=== PATIENT | male | born 1950 ===

== ENCOUNTER 2017-04-28 12:22 | Emergency (ER) | payer BC, OTHER ==
[~2017-04-28] VITALS: Ht 172.7 cm; Wt 83.9 kg
--- NOTE | 2017-04-28 13:33 | ED Upper Extremity ---
General Stated Complaint: RT ARM 'PULLED' Source: patient Exam Limitations: no limitations History of Present Illness Date Seen by Provider: Apr 28, 2017 Time Seen by Provider: 13:30 Initial Comments To ER with complaints of right arm pain. He states that on Tuesday with copious move when he felt the pulling sensation described as "3 rubber bands" across the medial aspect of the upper arm. He was using his arm to pull himself up today for worsening of this pain. He has a history of right shoulder dislocation. Pain is worsened by movement. He denies any swelling. Onset: last week Severity: moderate Pain/Injury Location: right arm Method of Injury: other (Lifting) Modifying Factors: Worse With Movement Allergies and Home Medications Allergies Coded Allergies: No Known Drug Allergies (Unverified , 04/28/17) Patient Home Medication List Home Medication List Reviewed: Yes Constitutional: see HPI EENTM: see HPI Respiratory: no symptoms reported Cardiovascular: no symptoms reported Genitourinary: no symptoms reported Musculoskeletal: see HPI Skin: no symptoms reported Psychiatric/Neurological: No Symptoms Reported Past Uychffs-Vmsbrt-Dvivar Hx Patient Social History Recent Foreign Travel: No Contact w/Someone Who Travel: No Physical Exam Vital Signs Vital Signs - First Documented 04/28/17 13:20 Temp 98.4 Pulse 78 Resp 16 B/P (MAP) 135/74 (94) Pulse Ox 100 O2 Delivery Room Air Capillary Refill : General Appearance: WD/WN, no apparent distress HEENT: PERRL/EOMI, normal ENT inspection Neck: non-tender, full range of motion Cardiovascular: regular rate, rhythm, no murmur Respiratory: normal breath sounds, no respiratory distress, no accessory muscle use Gastrointestinal: normal bowel sounds, non tender, soft Shoulder: limited ROM (Limited range of motion due to pain at the medial aspect of the upper arm. There is no swelling, no palpable cord to suggest superficial thrombophlebitis, no erythema, no swelling of the arm to suggest DVT ,) Elbow/Forearm: normal inspection, non-tender, Right, limited ROM (there is no increased pain with supination or pronation of the forearm, no increased pain with flexion of the forearm at the elbow.) Wrist: Yes normal inspection, Yes non-tender Hand: normal inspection, non-tender, Right Neurologic/Psychiatric: alert, normal mood/affect, oriented x 3 Progress/Results/Core Measures Results/Orders My Orders Orders - HANKINS,PETER J STRUCTURAL MANAGER Shoulder, Right, 3 Views (04/28/17 13:29) Vital Signs/I&O Vital Sign - Last 12Hours 04/28/17 04/28/17 13:20 14:10 Temp 98.4 98.4 Pulse 78 78 Resp 16 16 B/P (MAP) 135/74 (94) 135/74 (94) Pulse Ox 100 100 O2 Delivery Room Air Departure Communication (Admissions) Progress Notes His pain is in the his pain is most in the location of the coracobrachialis muscle this may represent a strain of that muscle. Clinical exam and x-ray or otherwise benign. Impression Impression: Primary Impression: Muscle strain, upper arm Disposition: HOME, SELF-CARE Condition: Stable Departure-Patient Inst. Decision time for Depature: 13:37 Referrals: NO,LOCAL PHYSICIAN (PCP/Family) Primary Care Physician Patient Instructions: Muscle Strain (DC) Add. Discharge Instructions: 1. Tylenol and Motrin for pain. If the pain persists into next week follow up with your doctor to discuss further imaging such as MRI. Images Extremities-Upper 1 - JUANI HANKINS APRN Apr 28, 2017 13:33
--- NOTE | 2017-04-28 14:02 | Diagnostic Imaging Report ---
EXAMINATION: Right shoulder. INDICATION: Shoulder pain. FINDINGS: Three views were obtained. There are no prior studies available for comparison. There is no fracture, dislocation, or acute bony abnormality evident. The glenohumeral and acromioclavicular joints are fairly well maintained. There are surgical screws within the greater tuberosity. This does suggest a prior repair of the rotator cuff. The soft tissues are unremarkable. IMPRESSION: 1. There is no evidence for an acute bony abnormality. 2. If there is clinical concern that the repair of the rotator cuff has been injured, then MRI will be recommended for further evaluation. Dictated by: Dictated on workstation # [id number]
[2017-04-28 14:10] VITALS: BP 135/74
== END 2017-04-28 14:10 | disposition home or self-care (01) ==
LOC: ER 12:26
DX: S46.911A Strain of unspecified muscle, fascia and tendon at shoulder and upper arm level, right arm, initial encounter (principal); Z87.828 Personal history of other (healed) physical injury and trauma; X50.0XXA Overexertion from strenuous movement or load, initial encounter
CPT/HCPCS: 73030

== ENCOUNTER → 2017-05-04 | Outpatient (CLI) | payer BC ==
--- NOTE | 2017-05-04 09:29 | Diagnostic Imaging Report ---
EXAMINATION: Magnetic resonance imaging of the right shoulder without contrast. DATE: 05/04/2017. COMPARISON: Right shoulder radiographs 04/28/2017. HISTORY: 66-year-old male, right shoulder pain. TECHNIQUE: Magnetic Resonance Imaging sequences were performed of the shoulder without contrast. FINDINGS: ROTATOR CUFF, LIGAMENTS, TENDONS, AND MUSCLES: There are multiple anchors in the superior humeral head in the region of the supraspinatus and infraspinatus tendon attachments. There are full-thickness fullwidth tears of the supraspinatus and infraspinatus tendons with tendon retraction between the level of the superior humeral head and glenoid. The teres minor tendon is intact. The subscapularis tendon is intact. There is mild fatty atrophy of the supraspinatus muscle. There is moderate to severe fatty atrophy of the infraspinatus muscle. LONG HEAD OF BICEPS: The long head of biceps tendon is not well-seen within the bicipital groove and may be torn and retracted below this level. GLENOHUMERAL JOINT: The humeral head is mildly posteriorly subluxed. There is no definite discretely identified labral tear. There is no identified paralabral cyst. The articular cartilage is grossly intact. There is a small glenohumeral joint effusion with synovitis. ACROMIOCLAVICULAR JOINT: The acromioclavicular joint is normally aligned. The coracoclavicular and coracoacromial ligaments are intact. There are mild acromioclavicular degenerative changes without large undersurface osteophyte. BONE: The bones all have normal configuration. The bone marrow signal is within normal limits. Specifically, negative for fracture, osteomyelitis, osteonecrosis, or marrow replacing process. BURSAE AND SOFT TISSUES: There is fluid in the subacromial subdeltoid bursa compatible with the full-thickness rotator cuff tendon tears, bursitis, and/or recent injection. IMPRESSION: 1. Status post rotator cuff tendon repair with full-thickness fullwidth tears of the supraspinatus and infraspinatus tendons with tendon retraction between the level of the superior humeral head and glenoid. Mild fatty atrophy of the supraspinatus muscle and moderate to severe fatty atrophy of the infraspinatus muscle. 2. Mild acromioclavicular degenerative changes without large undersurface osteophyte. 3. Small glenohumeral joint effusion with synovitis. 4. No acute fracture or bone contusion. Dictated by: Dictated on workstation # [id number]
== END ==
LOC: RAD 07:30
PROVIDERS: ATTEND Nurse Practitioner Family
DX: M75.101 Unspecified rotator cuff tear or rupture of right shoulder, not specified as traumatic (principal); M65.861 Other synovitis and tenosynovitis, right lower leg
CPT/HCPCS: 73221

== ENCOUNTER 2017-12-06 05:36 | Outpatient (CLI) | payer BC ==
[~2017-12-06] VITALS: Ht 172.7 cm; Wt 83.9 kg
[2017-12-06] MEDS ORDERED: CARB1TAB19 PO (13:09)
[2017-12-06] MEDS ORDERED: LISI1TAB8 PO (13:09)
== END 2017-12-06 13:13 | disposition home or self-care (01) ==
LOC: PREOP 05:36
PROVIDERS: ATTEND Surgery
DX: Z01.818 Encounter for other preprocedural examination (principal)

== ENCOUNTER 2017-12-12 09:00 | Day surgery (SDC) | payer MEDICARE ==
[~2017-12-12] VITALS: Ht 172.7 cm; Wt 83.9 kg
[~2017-12-12 09:00] MED LIST: CARB1TAB19 PO; LISI1TAB8 PO
[2017-12-12 09:05] VITALS: BP 158/91
[2017-12-12] MEDS ORDERED: NS IV 500 ML 500 ML IV PRN (09:09)
[2017-12-12] MEDS ORDERED: MIDAZOLAM 2 MG/2 ML (VERSED) VIAL IVP ONE (09:15)
[2017-12-12] MEDS ORDERED: fentaNYL INJECTION 100 MCG/2 ML AMP IVP ONE (09:15)
--- NOTE | 2017-12-12 10:00 | History & Physicial ---
History of Present Illness History of Present Illness Reason for visit/HPI to undergo screening colonoscopy. Reports a family history of colon cancer in his father and a sister Date of Admission 12/12/17 Date Seen by a Provider: Dec 12, 2017 Time Seen by a Provider: 09:58 I consulted on this patient on 12/12/17 09:58 Attending Physician Eleazar Ivy MD Admitting Physician Michaela Tomlinson MD Consult Allergies and Home Medications Allergies Coded Allergies: No Known Drug Allergies (Unverified , 04/28/17) Home Medications Carbidopa/Levodopa 1 Each Tablet, 1 EACH PO DAILY, (Reported) Lisinopril/Hydrochlorothiazide 1 Each Tablet, 1 EACH PO DAILY, (Reported) Patient Home Medication List Home Medication List Reviewed: Yes Past Qbngvcr-Ceikhi-Phigxu Hx Patient Social History Marrital Status: Employed/Student: retired Alcohol Use: Rarely Uses Number of Drinks Today: AA Alcohol Beverage of Choice: Beer, Wine Recreational Drug Use: No Smoking Status: Never a Smoker 2nd Hand Smoke Exposure: No Recent Foreign Travel: No Contact w/other who traveled: No Recent Hopitalizations: No Recent Infectious Disease Expo: No Immunizations Up To Date Date of Influenza Vaccine: Nov 14, 2017 Seasonal Allergies Seasonal Allergies: No Surgeries Yes Orthopedic Respiratory Yes Currently Using CPAP: Yes Cardiovascular Yes Hypertension Neurological Yes (RLS) Genitourinary No Gastrointestinal No Musculoskeletal Arthritis Endocrine History of Endocrine Disorders: No Family Medical History Family Hx: Colon cancer Review of Systems Constitutional: no symptoms reported EENTM: no symptoms reported Respiratory: no symptoms reported Cardiovascular: no symptoms reported Gastrointestinal: no symptoms reported Genitourinary: no symptoms reported Musculoskeletal: other Skin: no symptoms reported Psychiatric/Neurological: Other Physical Exam Vital Signs Vital Signs - First Documented 12/12/17 09:05 Temp 98.4 Pulse 66 Resp 18 B/P (MAP) 158/91 (113) Pulse Ox 99 O2 Delivery Room Air Capillary Refill : Height, Weight, BMI Height: 5'8.00" Weight: 185lbs. 0.0oz. [id number]; 28.1 BMI Method:Stated General Appearance: No Apparent Distress Neck: Normal Inspection Respiratory: Lungs Clear Cardiovascular: Regular Rate, Rhythm Gastrointestinal: Soft Rectal: Deferred Extremity: Normal Inspection, No Calf Tenderness Neurologic/Psychiatric: Alert, Oriented x3 Skin: Warm/Dry Assessment/Plan Assessment and Plan gentleman with a family history of colon cancer. For screening colonoscopy. Admission Diagnosis Admission Status: Other (Outpt Proc) ELEAZAR IVY MD Dec 12, 2017 10:00
--- NOTE | 2017-12-12 10:00 | Conscious Sedation/ASA ---
Conscious Sedation Pre-Proced Time 10:00 ASA Score 2 For ASA 3 and 4: Consider anesthesia and medical clearance. Also, for patients with a history of failed moderate sedation consider anesthesia. Airway Lungs Heart ASA score ASA 1: a normal healthy patient ASA 2: a patient with a mild systemic disease (mid diabetes, controlled hypertension, obesity ASA 3: a patient with a severe systemic disease that limits activity (angina , COPD, prior Myocardial infarction) ASA 4: a patient with an incapacitating disease that is a constant threat to life (CHF, renal failure) ASA 5: a moribund patient not expected to survive 24 hrs. (ruptured aneurysm) ASA 6: a declared brain patient whose organs are being harvested. For emergent operations, add the letter E after the classification Mallampati Classification Grade 1 Sedation Plan Discussed options with patient/fam The patient is an appropriate candidate to undergo the planned procedure, sedation, and anesthesia. The patient immediately re-assessed prior to indication. ELEAZAR COLMENARES MD Dec 12, 2017 10:00
[2017-12-12] MEDS ORDERED: MIDAZOLAM 2 MG/2 ML (VERSED) VIAL ONE ×4 (10:22)
[2017-12-12] MEDS ORDERED: fentaNYL INJECTION 100 MCG/2 ML AMP ONE (10:22)
--- NOTE | 2017-12-12 11:22 | Endo Procedure Record ---
Endo Procedure Report Date of Procedure Last Colonoscopy: Yes Dec 12, 2017 Surgeon (s) ELEAZAR COLMENARES MD Post Procedure/Op Diagnosis 2 mm polyp at the proximal transverse colon Procedure Performed colonoscopy to cecum Snare polypectomy Description of Procedure Anesthesia Type: Conscious Sedation Specimen(s) collected/removed polyp from proximal transverse colon Description of the Procedure Indication for the procedure: This gentleman has indication family history of colon cancer, involving his father and sister. In addition, he has a personal history of adenomatous polyps as well. He came in for surveillance colonoscopy. Informed consent was obtained after reviewing the procedure in detail. Description of procedure: She was placed in left lateral decubitus position and his vital signs were monitored. Conscious sedation was achieved using Versed and fentanyl. Digital rectal examination was unremarkable. The colonoscope was then introduced into the rectum and advanced to the cecum. The scope was then withdrawn slowly and the mucosa examined in a systematic fashion. The quality of bowel preparation was rather sub-optimal. However, I was able to irrigate the mucosa and complete the examination. Findings: 1. Very few sigmoid diverticula 2. 2 mm pedunculated polyp at the proximal transverse colon, that was snared and retrieved. He tolerated the procedure well and was taken back to the nursing area in a stable condition. Impression: Personal history of polyps and family history of colon cancer. 2 mm polyp excised from the proximal transverse colon. Recommend surveillance colonoscopy in 3 years. Copy Copies To 1: NALLELY KELLY MD, XAVIER M MD Dec 12, 2017 11:22
--- NOTE | 2017-12-12 11:23 | Discharge Inst-Simple/Standard ---
Discharge Inst-Standard Discharge Medications New, Converted or Re-Newed RX: Other Patient Instructions/Follow Up Plan of Care/Instructions/FU: repeat colonoscopy in 3 years Activity as Tolerated: Yes Discharge Diet: No Restrictions ELEAZAR COLMENARES MD Dec 12, 2017 11:23
[2017-12-12 11:30] VITALS: BP 134/83
[2017-12-12 11:50] VITALS: BP 128/91
== END 2017-12-12 11:50 | disposition home or self-care (01) ==
LOC: ENDO 09:00
PROVIDERS: ATTEND Surgery
DX: Z12.11 Encounter for screening for malignant neoplasm of colon (principal); K63.5 Polyp of colon; K57.30 Diverticulosis of large intestine without perforation or abscess without bleeding; I10 Essential (primary) hypertension; G25.81 Restless legs syndrome; Z80.0 Family history of malignant neoplasm of digestive organs; Z79.899 Other long term (current) drug therapy; Z86.010 Personal history of colon polyps
CPT/HCPCS: 88305

== ENCOUNTER 2018-05-16 15:08 | Emergency (ER) | payer MEDICARE ==
[~2018-05-16] VITALS: Ht 172.7 cm; Wt 85.3 kg
--- OUTSIDE RECORDS SUMMARY | 2018-05-16 15:14 | XMS REPORT | CCD ---
Author Author Valentina Samayoa MD, [facility] Address [address] [place] [address] Phone Care Team Providers Care Director Of Rehabilitative Services Name Role Phone PP Unavailable CCM Unavailable Summary Purpose Interface Exchange Insurance Providers Payer name Policy type / Coverage type Covered republican ID Effective Begin Date Effective End Date WPS Medicare Part B Medicare Part B [id number] Unknown AARP Medicare Part B [id number] Unknown Family history Brother Diagnosis Age At Onset Hyperlipidemia Unknown Mother Diagnosis Age At Onset Arthritis Unknown Hyperlipidemia Unknown Hypertension Unknown Father Diagnosis Age At Onset Heart Attack Unknown Colon cancer Unknown Hyperlipidemia Unknown Arthritis Unknown Hypertension Unknown Sister Diagnosis Age At Onset Hypertension Unknown Cancer Unknown Hyperlipidemia Unknown Colon cancer Unknown Hyperlipidemia Unknown Social History Social History Element Codes Description Effective Dates Marital status Unknown Sushila 11/14/2017 Number of children Unknown 2 05/02/[address]: 164031 Currently drinks alcohol 05/02/2017 Frequency of drinks SNOMED CT: 309895832 1-4 drinks per week 05/02/2017 Allergies, Adverse Reactions, Alerts Substance Reaction Codes Entered Date Inactivated Date Status * NO KNOWN DRUG ALLERGIES Unknown 11/14/2017 No Inactive Date Active Past Medical History Illness Codes Condition Status Onset Date Resolved Date Essential (primary) hypertension ICD-9: 401.1 ICD-10: I10 Active 11/14/2017 Unknown Asymptomatic varicose veins of bilateral lower extremities ICD-9: 454.9 ICD-10: I83.93 Active 11/14/2017 Unknown Pain in left finger(s) ICD-9: 729.5 ICD-10: M79.645 Active 11/14/2017 Unknown Pain in right finger(s) ICD-9: 729.5 ICD-10: M79.644 Active 11/14/2017 Unknown Restless leg syndrome Unknown Active 05/02/2017 Unknown Pain in right shoulder ICD-9: 719.41 ICD-10: M25.511 Active 05/02/2017 Unknown Problems Condition Codes Effective Dates Condition Status Essential (primary) hypertension ICD-9: 401.1 ICD-10: I10 11/14/2017 Active Asymptomatic varicose veins of bilateral lower extremities ICD-9: 454.9 ICD-10: I83.93 11/14/2017 Active Pain in left finger(s) ICD-9: 729.5 ICD-10: M79.645 11/14/2017 Active Pain in right finger(s) ICD-9: 729.5 ICD-10: M79.644 11/14/2017 Active Restless leg syndrome Unknown 05/02/2017 Active Pain in right shoulder ICD-9: 719.41 ICD-10: M25.511 05/02/2017 Active Medications Medication Codes Instructions Start Date Stop Date Status Fill Instructions carbidopa 25 mg-levodopa 100 mg tablet RxNorm: 572536 1 Tablet(s) PO daily 11/22/2017 06/19/2018 Active lisinopril 20 mg-hydrochlorothiazide 12.5 mg tablet RxNorm: 551924 1 Tablet(s) PO daily 11/22/2017 06/19/2018 Active carbidopa 25 mg-levodopa 100 mg tablet RxNorm: 940424 1 Tablet(s) PO daily 11/21/2017 11/21/2017 Inactive lisinopril 20 mg-hydrochlorothiazide 12.5 mg tablet RxNorm: 441879 1 Tablet(s) PO daily 11/21/2017 11/21/2017 Inactive Voltaren 1 % topical gel RxNorm: 827247 1 Gram(s) TOP QID 11/1412/13/2017 Inactive acyclovir 200 mg capsule RxNorm: 184566 1 Capsule(s) PO as needed fever blisters No Start Date Active lisinopril 20 mg-hydrochlorothiazide 12.5 mg tablet RxNorm: 270771 1 Tablet(s) PO daily No Start Date 11/20/2017 Inactive carbidopa 25 mg-levodopa 100 mg tablet RxNorm: 622448 1 Tablet(s) PO daily No Start Date 11/20/2017 Inactive Medication Administered No Medication Administered data Immunizations Vaccine Codes Date Status SHINGARIX CVX: 121 04/24/2018 completed Assessments Condition Codes Effective Dates Essential (primary) hypertension ICD-10: I10 ICD-9: 401.1 05/15/2018 Pain in right finger(s) ICD-10: M79.644 ICD-9: 729.5 11/14/2017 Pain in left finger(s) ICD-10: M79.645 ICD-9: 729.5 11/14/2017 Asymptomatic varicose veins of bilateral lower extremities ICD-10: I83.93 ICD-9: 454.9 11/14/2017 Pain in right shoulder ICD-10: M25.511 ICD-9: 719.41 05/02/2017 Reason For Visit Reason For Visit Effective Dates Notes hypertension 05/15/2018 hypertension 11/14/2017 arm pain 05/02/2017 Results No Results data Review of Systems System Result Effective Dates Constitutional No recent illness 2018 Constitutional No chills 05/15/2018 Constitutional No fatigue 05/15/2018 Constitutional No fever 05/15/2018 Constitutional No insomnia 05/15/2018 Constitutional No malaise 05/15/2018 Eyes No vision change 05/15/2018 Ears/Nose/Throat/Neck No dizziness 2018 Ears/Nose/Throat/Neck No dysphagia 2018 Ears/Nose/Throat/Neck No headache 2018 Ears/Nose/Throat/Neck No nasal allergies 05/15/2018 Ears/Nose/Throat/Neck No sore throat 02/2018 Ears/Nose/Throat/Neck No sinus congestion 05/15/2018 Cardiovascular No chest pain/pressure 02/2018 Cardiovascular No dyspnea 05/15/2018 Cardiovascular No edema 05/15/2018 Cardiovascular No exercise intolerance Cardiovascular No fatigue 05/15/2018 Cardiovascular No near-syncope/dizziness 05/15/2018 Respiratory No chest tightness 2018 Respiratory No cough 05/15/2018 Respiratory No dyspnea 05/15/2018 Respiratory No pedal edema 05/15/2018 Gastrointestinal No abdominal pain 2018 Gastrointestinal No constipation 2018 Gastrointestinal No diarrhea 05/15/2018 Gastrointestinal No gastroesophageal reflux 05/15/2018 Genitourinary/Nephrology No nocturia 02/2018 Genitourinary/Nephrology No urinary incontinence 05/15/2018 Musculoskeletal stiffness 05/15/2018 Musculoskeletal No swelling 05/15/2018 Musculoskeletal bone pain 05/15/2018 Musculoskeletal No muscle weakness 2018 Dermatologic No rash 05/15/2018 Dermatologic No sores 05/15/2018 Neurologic No dizziness 05/15/2018 Neurologic No headache 05/15/2018 Neurologic No neck pain 05/15/2018 Neurologic No syncope 05/15/2018 Psychiatric No anxiety 05/15/2018 Psychiatric No depression 05/15/2018 Constitutional No recent illness 2017 Constitutional No chills 11/14/2017 Constitutional No fatigue 11/14/2017 Constitutional No fever 11/14/2017 Constitutional No insomnia 11/14/2017 Constitutional No malaise 11/14/2017 Eyes No vision change 11/14/2017 Ears/Nose/Throat/Neck No dizziness 2017 Ears/Nose/Throat/Neck No dysphagia 2017 Ears/Nose/Throat/Neck No headache 2017 Ears/Nose/Throat/Neck No nasal allergies 11/14/2017 Ears/Nose/Throat/Neck No sore throat 02/2017 Ears/Nose/Throat/Neck No sinus congestion 11/14/2017 Cardiovascular No chest pain/pressure 02/2017 Cardiovascular No dyspnea 11/14/2017 Cardiovascular No edema 11/14/2017 Cardiovascular No exercise intolerance Cardiovascular No fatigue 11/14/2017 Cardiovascular No near-syncope/dizziness 11/14/2017 Respiratory No chest tightness 2017 Respiratory No cough 11/14/2017 Respiratory No dyspnea 11/14/2017 Respiratory No pedal edema 11/14/2017 Gastrointestinal No abdominal pain 2017 Gastrointestinal No constipation 2017 Gastrointestinal No diarrhea 11/14/2017 Gastrointestinal No gastroesophageal reflux 11/14/2017 Genitourinary/Nephrology No nocturia 02/2017 Genitourinary/Nephrology No urinary incontinence 11/14/2017 Musculoskeletal stiffness 11/14/2017 Musculoskeletal No swelling 11/14/2017 Musculoskeletal No muscle weakness 2017 Dermatologic No rash 11/14/2017 Dermatologic No sores 11/14/2017 Neurologic No dizziness 11/14/2017 Neurologic No headache 11/14/2017 Neurologic No neck pain 11/14/2017 Neurologic No syncope 11/14/2017 Psychiatric No anxiety 11/14/2017 Psychiatric No depression 11/14/2017 Musculoskeletal bone pain 11/14/2017 Dermatologic ecchymosis 05/02/2017 Constitutional No recent illness 2017 Constitutional No anorexia 05/02/2017 Constitutional No night sweats 2017 Constitutional No chills 05/02/2017 Constitutional No diaphoresis 05/02/2017 Constitutional No fatigue 05/02/2017 Constitutional No fever 05/02/2017 Constitutional No insomnia 05/02/2017 Constitutional No malaise 05/02/2017 Constitutional No weight loss 05/02/2017 Constitutional No weight gain 05/02/2017 Eyes No eye discharge 05/02/2017 Eyes No eye erythema 05/02/2017 Ears/Nose/Throat/Neck No dizziness 2017 Ears/Nose/Throat/Neck No headache 2017 Cardiovascular No chest pain/pressure Cardiovascular No dyspnea 05/02/2017 Respiratory No cough 05/02/2017 Gastrointestinal No abdominal pain 2017 Gastrointestinal No constipation 2017 Gastrointestinal No diarrhea 05/02/2017 Genitourinary/Nephrology No dysuria 05/02 Musculoskeletal joint complaint 2017 Neurologic No alteration of consciousness 05/02/2017 Psychiatric No depression 05/02/2017 Endocrine No dry or coarse skin 2017 Hematologic/Lymphatic No abnormal ecchymoses 05/02/2017 Physical Exam Exam Name System Name Item Name Status Result Effective Dates Notes Full Exam - General 1994 Constitutional general appearance Development: well developed 05/15/2018 None Full Exam - General 1994 Constitutional general appearance Development: appears stated age 0405/15/2018 None Full Exam - General 1994 Constitutional general appearance Hygiene/Attention to Grooming: good hygiene 05/15/2018 None Full Exam - General 1994 Eyes conjunctiva /eyelids Overall: conjunctiva clear 05/15/2018 None Full Exam - General 1994 Eyes conjunctiva /eyelids Overall: cornea clear 05/15/2018 None Full Exam - General 1994 Eyes conjunctiva /eyelids Overall: eyelids normal 05/15/2018 None Full Exam - General 1994 Eyes pupils and irises Overall: pupils equal, round, reactive to light and accomodation 05/15/2018 None Full Exam - General 1994 Ears/Nose/Throat otoscopic exam Overall: external auditory canals clear 05/15/2018 None Full Exam - General 1994 Ears/Nose/Throat otoscopic exam Overall: tympanic membranes clear 05/15/2018 None Full Exam - General 1994 Ears/Nose/Throat lips/teeth/gingiva Overall: benign lips 05/15/2018 None Full Exam - General 1994 Ears/Nose/Throat lips/teeth/gingiva Overall: normal dentition 05/15/2018 None Full Exam - General 1994 Ears/Nose/Throat oral cavity/pharynx/larynx Overall: oral mucosa clear 05/15/2018 None Full Exam - General 1994 Ears/Nose/Throat oral cavity/pharynx/larynx Overall: oropharyngeal mucosa clear 05/15/2018 None Full Exam - General 1994 Ears/Nose/Throat oral cavity/pharynx/larynx Overall: hypopharynx benign 05/15/2018 None Full Exam - General 1994 Ears/Nose/Throat oral cavity/pharynx/larynx Overall: no masses 05/15/2018 None Full Exam - General 1994 Respiratory auscultation Overall: breath sounds clear bilaterally 05/15/2018 None Full Exam - General 1994 Respiratory respiratory effort/rhythm Overall: no retractions 05/15/2018 None Full Exam - General 1994 Respiratory respiratory effort/rhythm Overall: normal rate 05/15/2018 None Full Exam - General 1994 Cardiovascular extremities Overall: no clubbing 05/15/2018 None Full Exam - General 1994 Cardiovascular auscultation of heart Overall: regular rate 05/15/2018 None Full Exam - General 1994 Cardiovascular auscultation of heart Overall: normal heart sounds 05/15/2018 None Full Exam - General 1994 Abdomen abdominal exam Overall: no tenderness 05/15/2018 None Full Exam - General 1994 Abdomen abdominal exam Overall: normal bowel sounds 05/15/2018 None Full Exam - General 1994 Lymphatic neck nodes Overall: anterior cervical chain benign 05/15/2018 None Full Exam - General 1994 Lymphatic neck nodes Overall: posterior cervical chain benign 05/15/2018 None Full Exam - General 1994 Musculoskeletal spine, ribs and pelvis Overall: spine benign 05/15/2018 None Full Exam - General 1994 Musculoskeletal spine, ribs and pelvis Overall: sacroiliac joint benign 05/15/2018 None Full Exam - General 1994 Musculoskeletal spine, ribs and pelvis Overall: good posture 05/15/2018 None Full Exam - General 1994 Musculoskeletal head and neck Overall: head atraumatic 05/15/2018 None Full Exam - General 1994 Musculoskeletal head and neck Overall: cervical spine benign 05/15/2018 None Full Exam - General 1994 Integument inspection of skin Overall: few scattered moles, no gross abnormalities 05/15/2018 None Full Exam - General 1994 Neurologic cranial nerves Overall: crainial nerves 2 - 12 grossly intact 05/15/2018 None Full Exam - General 1994 Psychiatric orientation/consciousness Overall: oriented to person, place and time 05/15/2018 None Full Exam - General 1994 Psychiatric mood and affect Overall: normal mood and affect 05/15/2018 None Full Exam - General 1994 Constitutional general appearance Development: well developed 11/14/2017 None Full Exam - General 1994 Constitutional general appearance Development: appears stated age 1011/14/2017 None Full Exam - General 1994 Constitutional general appearance Hygiene/Attention to Grooming: good hygiene 11/14/2017 None Full Exam - General 1994 Eyes conjunctiva /eyelids Overall: conjunctiva clear 11/14/2017 None Full Exam - General 1994 Eyes conjunctiva /eyelids Overall: cornea clear 11/14/2017 None Full Exam - General 1994 Eyes conjunctiva /eyelids Overall: eyelids normal 11/14/2017 None Full Exam - General 1994 Eyes pupils and irises Overall: pupils equal, round, reactive to light and accomodation 11/14/2017 None Full Exam - General 1994 Ears/Nose/Throat otoscopic exam Overall: external auditory canals clear 11/14/2017 None Full Exam - General 1994 Ears/Nose/Throat otoscopic exam Overall: tympanic membranes clear 11/14/2017 None Full Exam - General 1994 Ears/Nose/Throat lips/teeth/gingiva Overall: benign lips 11/14/2017 None Full Exam - General 1994 Ears/Nose/Throat lips/teeth/gingiva Overall: normal dentition 11/14/2017 None Full Exam - General 1994 Ears/Nose/Throat oral cavity/pharynx/larynx Overall: oral mucosa clear 11/14/2017 None Full Exam - General 1994 Ears/Nose/Throat oral cavity/pharynx/larynx Overall: oropharyngeal mucosa clear 11/14/2017 None Full Exam - General 1994 Ears/Nose/Throat oral cavity/pharynx/larynx Overall: hypopharynx benign 11/14/2017 None Full Exam - General 1994 Ears/Nose/Throat oral cavity/pharynx/larynx Overall: no masses 11/14/2017 None Full Exam - General 1994 Respiratory auscultation Overall: breath sounds clear bilaterally 11/14/2017 None Full Exam - General 1994 Respiratory respiratory effort/rhythm Overall: no retractions 11/14/2017 None Full Exam - General 1994 Respiratory respiratory effort/rhythm Overall: normal rate 11/14/2017 None Full Exam - General 1994 Cardiovascular extremities Overall: no clubbing 11/14/2017 None Full Exam - General 1994 Cardiovascular auscultation of heart Overall: regular rate 11/14/2017 None Full Exam - General 1994 Cardiovascular auscultation of heart Overall: normal heart sounds 11/14/2017 None Full Exam - General 1994 Abdomen abdominal exam Overall: no tenderness 11/14/2017 None Full Exam - General 1994 Abdomen abdominal exam Overall: normal bowel sounds 11/14/2017 None Full Exam - General 1994 Lymphatic neck nodes Overall: anterior cervical chain benign 11/14/2017 None Full Exam - General 1994 Lymphatic neck nodes Overall: posterior cervical chain benign 11/14/2017 None Full Exam - General 1994 Musculoskeletal spine, ribs and pelvis Overall: spine benign 11/14/2017 None Full Exam - General 1994 Musculoskeletal spine, ribs and pelvis Overall: sacroiliac joint benign 11/14/2017 None Full Exam - General 1994 Musculoskeletal spine, ribs and pelvis Overall: good posture 11/14/2017 None Full Exam - General 1994 Musculoskeletal head and neck Overall: head atraumatic 11/14/2017 None Full Exam - General 1994 Musculoskeletal head and neck Overall: cervical spine benign 11/14/2017 None Full Exam - General 1994 Integument inspection of skin Overall: few scattered moles, no gross abnormalities 11/14/2017 None Full Exam - General 1994 Neurologic cranial nerves Overall: crainial nerves 2 - 12 grossly intact 11/14/2017 None Full Exam - General 1994 Psychiatric orientation/consciousness Overall: oriented to person, place and time 11/14/2017 None Full Exam - General 1994 Psychiatric mood and affect Overall: normal mood and affect 11/14/2017 None Full Exam - General 1994 Musculoskeletal upper extremity Inspection - shoulder: presence of a scar 11/14/2017 None Full Exam - General 1994 Musculoskeletal upper extremity Inspection - upper arm: Right bicep rupture bulge 11/14/2017 None Full Exam - Orthopedics Constitutional general appearance Overall: well nourished 05/02/2017 None Full Exam - Orthopedics Constitutional general appearance Overall: in no acute distress 05/02/2017 None Full Exam - Orthopedics Constitutional general appearance Overall: normal body habitus 05/02/2017 None Full Exam - Orthopedics Constitutional general appearance Overall: well developed 05/02/2017 None Full Exam - Orthopedics Psychiatric orientation/consciousness Overall: oriented to person, place and time 05/02/2017 None Full Exam - Orthopedics Respiratory auscultation Overall: breath sounds clear bilaterally 05/02/2017 None Full Exam - Orthopedics Respiratory respiratory effort/rhythm Overall: no retractions 05/02/2017 None Full Exam - Orthopedics Respiratory respiratory effort/rhythm Overall: normal rate 05/02/2017 None Full Exam - Orthopedics Respiratory respiratory effort/rhythm Overall: normal , symmetric chest expansion 05/02/2017 None Full Exam - Orthopedics Ears/Nose/Throat otoscopic exam Overall: external auditory canals clear 05/02/2017 None Full Exam - Orthopedics Ears/Nose/Throat otoscopic exam Overall: tympanic membranes clear 05/02/2017 None Full Exam - Orthopedics Ears/Nose/Throat oral cavity/pharynx/larynx Overall: oral mucosa clear 05/02/2017 None Full Exam - Orthopedics Eyes conjunctiva/ eyelids Overall: conjunctiva clear 05/02/2017 None Full Exam - Orthopedics MS: head/neck insp & palp - H/N Overall: head atraumatic 05/02/2017 None Full Exam - Orthopedics MS: head/neck insp & palp - H/N Overall: normal cervical alignment 05/02/2017 None Full Exam - Orthopedics MS: right upper extremity insp & palp - RUE Shoulder: tenderness @ biceps tendon 05/02/2017 None Full Exam - Orthopedics MS: right upper extremity insp & palp - RUE Upper arm: tenderness 05/02/2017 ecchymosis over biceps Full Exam - Orthopedics Neurological coordination Overall: intact fine motor movement 05/02/2017 None Full Exam - Orthopedics Neurological deep tendon reflex/nerve stretch Overall: deep tendon reflexes intact 05/02/2017 None Full Exam - Orthopedics Neurological mood and affect Overall: normal mood and affect 05/02/2017 None Full Exam - Orthopedics Musculoskeletal gait and station Overall: normal gait 05/02/2017 None Full Exam - Orthopedics Musculoskeletal gait and station Overall: no ataxia, no unsteadiness 05/02/2017 None Full Exam - Orthopedics Cardiovascular examination of vasculature Overall: no clubbing, cyanosis, edema 05/02/2017 None Full Exam - Orthopedics Cardiovascular examination of vasculature Overall: good capillary refill 05/02/2017 None Full Exam - Orthopedics Cardiovascular examination of vasculature Overall: warm extremities 05/02/2017 None Procedures No Procedures data Vital Signs Date Vital 05/15/2018 Blood Pressure 1: 148/80 Code : 8480-6 BMI: 28.6 Code : 80104-4 Heart Rate 1 : 61 bpm Height: 5'8" SpO2: 99% Weight: 188 lbs 11/14/2017 Blood Pressure 1: 146/82 Code : 8480-6 BMI: 28.7 Code : 24416-0 Heart Rate 1 : 61 bpm Height: 5'8" SpO2: 99% Weight: 189 lbs 05/02/2017 Blood Pressure 1: 132/78 Code : 8480-6 BMI: 29.2 Code : 73234-4 Heart Rate 1 : 63 bpm Height: 5'8" SpO2: 96% Weight: 192 lbs Functional Status No Functional Status data History of Present Illness Symptom Name Status Result Effective Date Notes Onset and Resolution ongoing 05/15/2018 None Onset of Symptom during adulthood 05/15/2018 None Alleviating Factors medication 05/15/2018 None Pertinent Findings Denies dizziness 05/15/2018 None Pertinent Findings Denies dyspnea 05/15/2018 None Pertinent Findings Denies edema 05/15/2018 None Quality stable 2018 None Alleviating Factors medication 05/15/2018 None Quality primary hypertension 05/15/2018 None Quality chronic 05/15 None Quality chronic 05/15 None Blood Pressure Values patient checking blood pressure at home - did not bring in readings 2018 None hypertension Onset and Resolution ongoing 11/14/2017 None hypertension Onset of Symptom during adulthood 11/14/2017 None hypertension Blood Pressure Values not checking blood pressure at home 11/14/2017 None hypertension Alleviating Factors medication 11/14/2017 None hypertension Pertinent Findings Denies dizziness 11/14/2017 None hypertension Pertinent Findings Denies dyspnea 11/14/2017 None hypertension Pertinent Findings Denies edema 11/14/2017 None spasms/spasticity Quality stable 11/14/2017 None spasms/spasticity Alleviating Factors medication 11/14/2017 None arm pain Location right arm 05/02/2017 None arm pain Location right upper arm 05/02/2017 None arm pain Radiating the right upper extremity 05/02/2017 None arm pain Quality sharp pain 05/02/2017 None arm pain Quality intermittent 05/02/2017 None arm pain Onset and Resolution sudden in onset 05/02/2017 None arm pain Onset of Symptom 4 days ago 05/02/2017 None arm pain Limitation on Activities moderately limits activities 05/02/2017 None arm pain Severity moderate 05/02/2017 None arm pain Associated Injuries upper arm 05/02/2017 bicep arm pain Pertinent Findings male 05/02/2017 None arm pain Pertinent Findings 62 years 05/02/2017 None Advance Directives No Advance Directive data Encounters Encounter Performer Location Codes Date ([id number]) [id number] EST. PATIENT, LEVEL IV Diagnosis: Essential (primary) hypertension[ICD10: I10] Michaela Tomlinson MD, [facility] CPT-4: 04989 05/15/2018 ([id number]) [id number] EST. PATIENT, LEVEL IV Diagnosis: Essential (primary) hypertension[ICD10: I10] Diagnosis: Pain in left finger(s)[ICD10: M79.645] Diagnosis: Pain in right finger(s)[ICD10: M79.644] Diagnosis: Asymptomatic varicose veins of bilateral lower extremities[ICD10: I83.93] Michaela Tomlinson MD, [facility] CPT-4: 47130 2017 OFFICE/OUTPATIENT VISIT NEW Diagnosis: Pain in right shoulder[ICD10: M25.511] Valentina Tomlinson MD, [facility] CPT-4: 10305 05/02/2017 Plan of Care Planned Activity Notes Codes Status Date Visit Plan: Hypertension - well controlled - continue with current medications, continue with no added salt diet. Pt has been encouraged to exercise daily. The pt has been advised to call the office if there are any acute concerns about change in blood pressure readings at home. 05/15/2018 Patient Education: Patient Medication Summary Completed 05/15/2018 Care Plan: Comp Metabolic Pending 05/15/2018 Care Plan: Cbc With Differential Pending 05/15/2018 Care Plan: Tsh Pending 05/15/2018 Care Plan: Lipid Pending 05/15/2018 Care Plan: Total Psa Pending 05/15/2018 Visit Plan: Hypertension - well controlled - continue with current medications, continue with no added salt diet. Pt has been encouraged to exercise daily. The pt has been advised to call the office if there are any acute concerns about change in blood pressure readings at home. finger pain - rx for volatern gel given to patient varicose veins - recommended compression when standing/exercising. 11/14/2017 Appointment: Michaela Tomlinson WPtel: [address] [place], [place] [phone] [place] (15 min) Moderate 11/14/2017 Patient Education: Patient Medication Summary Completed 11/14/2017 App[facility]ment: [facility] [phone] [id number] (15 min) Moderate 05/26/2017 Appointment: Michaela Tomlinson WPtel: [phone] [facility] Physical 05/25/2017 Visit Plan: Right shoulder pain-suspect biceps tendon rupture-will schedule MRI right shoulder-patient has an appt with Ortho on . 05/02/2017 Appointment: Valentina Samayoa WPtel: [phone] [facility] New Patient 05/02/2017 Patient Education: Patient Medication Summary Completed 05/02/2017 Instructions Comment . Right shoulder pain-suspect biceps tendon rupture-will schedule MRI right shoulder-patient has an appt with Ortho on . . Hypertension - well controlled - continue with current medications, continue with no added salt diet. Pt has been encouraged to exercise daily. The pt has been advised to call the office if there are any acute concerns about change in blood pressure readings at home. finger pain - rx for volatern gel given to patient varicose veins - recommended compression when standing/exercising. . Hypertension - well controlled - continue with current medications, continue with no added salt diet. Pt has been encouraged to exercise daily. The pt has been advised to call the office if there are any acute concerns about change in blood pressure readings at home.
--- NOTE | 2018-05-16 15:58 | ED General ---
General Chief Complaint: Laceration Stated Complaint: R HAND LAC Nursing Triage Note: Pt ambulatory to ED. Pt has right hand wrapped and has not removed glove. 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 Bleeding is controlled at this time. Pt reports throbbing pain, 5/10. Pt reports taking 81 mg aspirin daily. Pt reports last tetanus shot approximately 2 years ago. Nursing Sepsis Screen: No Definite Risk Source of Information: Patient Exam Limitations: No Limitations History of Present Illness Date Seen by Provider: May 16, 2018 Time Seen by Provider: 15:58 Initial Comments 67 yo male patient presents to the emergency department with complaints of lacerations to the right fourth and fifth fingers while using a table saw at home. Onset 20 minutes prior to arrival. Location Injury Occurred: home Timing/Duration: Other (20 minutes prior to arrival) Modifying Factors: worse with Movement Allergies and Home Medications Allergies Coded Allergies: No Known Drug Allergies (Unverified , 04/28/17) Home Medications Carbidopa/Levodopa 1 Each Tablet, 1 EACH PO DAILY, (Reported) Hydrocodone/Acetaminophen 1 Each Tablet, 1 TAB PO Q4-6HR PRN for pain Prescribed by: LARISSA SOL on 05/16/181711 Lisinopril/Hydrochlorothiazide 1 Each Tablet, 1 EACH PO DAILY, (Reported) Sulfamethoxazole/Trimethoprim 1 Each Tablet, 1 EACH PO BID Prescribed by: LARISSA SOL on 05/16/181711 Patient Home Medication List Home Medication List Reviewed: Yes Review of Systems Review of Systems Constitutional: no symptoms reported Respiratory: no symptoms reported Cardiovascular: no symptoms reported Musculoskeletal: see HPI, joint pain (right fourth and fifth finger pain) Skin: see HPI Psychiatric/Neurological: Denies Numbness, Denies Paresthesia, Denies Tingling , Denies Weakness All Other Systems Reviewed Negative Unless Noted: Yes (Negative excepted noted.) Past Cyarxsp-Tuxums-Eqpxni Hx Past Med/Social Hx: Reviewed and Corrections made Patient Social History Alcohol Use: Occasionally Uses Number of Drinks Today: Alcohol Beverage of Choice: Beer, Wine Recreational Drug Use: No 2nd Hand Smoke Exposure: No Recent Foreign Travel: No Contact w/Someone Who Travel: No Recent Infectious Disease Expo: No Recent Hopitalizations: No Physical Abuse: No Sexual Abuse: No Immunizations Up To Date Tetanus Booster (TDap): Less than 5yrs Date of Influenza Vaccine: Nov 14, 2017 Seasonal Allergies Seasonal Allergies: No Past Medical History Surgeries: Yes (bilat rotator cuff, R knee scope) Orthopedic Respiratory: Yes Sleep Apnea Currently Using CPAP: Yes Cardiac: Yes Hypertension Neurological: Yes (restless legs) Genitourinary: No Gastrointestinal: No Musculoskeletal: Yes Arthritis Endocrine: No Cancer: No Psychosocial: No Integumentary: No Blood Disorders: No Family Medical History Reviewed Nursing Family Hx Colon cancer No Pertinent Family Hx Physical Exam Vital Signs Vital Signs - First Documented 05/16/18 15:15 Temp 98.0 Pulse 81 Resp 18 B/P (MAP) 168/101 (123) Pulse Ox 97 O2 Delivery Room Air Capillary Refill : Less Than 3 Seconds Height, Weight, BMI Height: 5'8.00" Weight: 188lbs. 0.0oz. [id number]; 28.1 BMI Method:Stated General Appearance: No Apparent Distress, WD/WN Respiratory: Lungs Clear, Normal Breath Sounds, No Accessory Muscle Use, No Respiratory Distress Cardiovascular: Regular Rate, Rhythm, No Murmur, Normal Peripheral Pulses Extremity: Normal Capillary Refill, Other (3 cm irregular, stellate lacerations to the right 4th distal finger with an active arterial bleed and complete nail avulsion noted. rt distal 5th finger shows a 0.5 cm skin and nail avulsion. (+) soft tissue tenderness and swelling. no cyanosis noted. ) Neurologic/Psychiatric: Alert, Oriented x3, Normal Mood/Affect, Sensory Deficit (distal rt 4th finger) Skin: Normal Color, Warm/Dry, Other (3 cm irregular, stellate lacerations to the right 4th distal finger with an active arterial bleed with complete nail avulsion noted. rt distal 5th finger shows a 0.5 cm skin and nail avulsion. (+ ) soft tissue tenderness and swelling. no cyanosis noted. ) Procedures/Interventions Wound Location: Other (rt 4th distal finger) Wound's Depth, Shape: irregular, stellate, nail-avulsed, bone, sub Q Wound Explored: contaminated Irrigated w/ Saline (ccs): 500 Betadine Prep?: Yes Volume Anesthetic (ccs): 6 (digital block with a 1:1 mixture of 2% lidocaine and 0.5% marcaine to the rt 4th and 5th digits.) Suture: Vicryl Suture Size: 3-0 Number of Sutures: 4 Layer Closure?: 1 Number Deep Layer Sutures: 1 (1 figure of eight suture to obtain hemostasis) Sterile Dressing Applied?: Yes Progress surgicel placed in the rt 4th finger wound. the distal rt 5th finger partial skin and nail avulsion debrided using suture scissors. blood loss minimal. patient tolerated the procedure well. wounds dressed with 2x2 gauze and tube gauze. Progress/Results/Core Measures Suspected Sepsis Recent Fever Within 48 Hours: No Infection Criteria Present: None New/Unexplained Altered Menta: No Sepsis Screen: No Definite Risk SIRS Temperature:98.0 Pulse: 81 Respiratory Rate: 18 Blood Pressure 168 /101 Mean: 123 Results/Orders My Orders Orders - LARISSA SOL Bupivacaine 0.5% Injection (Sensorcaine (05/16/18 16:02) Lidocaine 2% Pf 5 Ml (Xylocaine 2% Pf) (05/16/18 16:02) Hand, Right, 3 Views (05/16/18 16:06) Medications Given in ED Current Medications Medications Dose Ordered Sig/Jyoti Route Start Time Stop Time Status Last Admin Dose Admin Bupivacaine HCl 30 ml STK-MED ONCE .ROUTE 05/16/18 16:02 05/16/18 16:06 DC 05/16/18 16:15 3 ML Lidocaine HCl 5 ml STK-MED ONCE .ROUTE 05/16/18 16:02 05/16/18 16:06 DC 05/16/18 16:15 3 ML Vital Signs/I&O 05/16/18 05/16/18 15:15 17:40 Temp 98.0 98.0 Pulse 81 82 Resp 18 18 B/P (MAP) 168/101 (123) 167/99 (121) Pulse Ox 97 97 O2 Delivery Room Air Room Air Capillary Refill : Less Than 3 Seconds Blood Pressure Mean: 123 Diagnostic Imaging Diagonstic Imaging: Xray Plain Films/CT/US/NM/MRI: hand Comments HAND, RIGHT, 3 VIEWS INDICATION: Table saw injury. Three views of the right hand shows appearance of amputation of the tip of the fourth digit which involves the tuft and soft tissues distal to this. No other acute bony abnormality is evident. There are degenerative changes seen of the interphalangeal joints. IMPRESSION: There appears to be injury involving the tuft of the right fourth finger. Dictated by: Dictated on workstation # [id number] Reviewed: Reviewed by Me (radiology report reviewed by me) Departure Communication (Admissions) Patient seen and evaluated. Wound repair performed. Land for discharge to home. Patient to return to the emergency department in 3 days for dressing change. Patient to follow-up with his primary care provider for recheck. Impression Primary Impression: Laceration of right ring finger with damage to nail w/o foreign body Qualified Codes: S61.314A - Laceration without foreign body of right ring finger with damage to nail, initial encounter Additional Impressions: Laceration of right little finger without foreign body Qualified Codes: S61.316A - Laceration without foreign body of right little finger with damage to nail, initial encounter Fracture of distal phalanx of right ring finger Qualified Codes: S62.634B - Displaced fracture of distal phalanx of right ring finger, initial encounter for open fracture Disposition: HOME, SELF-CARE Condition: Improved Departure-Patient Inst. Decision time for Depature: 17:10 Referrals: NALLELY KELLY MD (PCP/Family) Primary Care Physician Patient Instructions: Finger Fracture (DC), Laceration Repair With Stitches (DC ), Nail Avulsion (DC), SKIN AVULSION Add. Discharge Instructions: All discharge instructions reviewed with patient and/or family. Voiced understanding. Medications as instructed. No ibuprofen or Aleve. Elevate the right hand on pillows above the level of the heart. Ice pack for 20 and intervals as needed. Leave the bandage intact. Keep the bandage. Return to the emergency department in 3 days for a dressing change. No use of the right 4th and 5th fingers until released. Follow-up with your primary care provider for recheck as an outpatient. Return in the emergency department for worsened pain, fever, drainage, pain from the dressing, or any other concerns. Scripts Sulfamethoxazole/Trimethoprim (Bactrim Ds Tablet) 1 Each Tablet 1 EACH PO BID, #14 TAB 0 Refills Prov: LARISSA SOL 05/16/18 Hydrocodone/Acetaminophen (Hydrocodone-Acetamin 5-325 mg) 1 Each Tablet 1 TAB PO Q4-6HR PRN for pain MDD 10, #20 TAB 0 Refills Prov: LARISSA SOL 05/16/18 Copy Copies To 1: NALLELY KELLY MD, GRETCHEN L PA May 16, 2018 15:58
[2018-05-16] MEDS ORDERED: BUPIVACAINE 0.5% 30 ML (SENSORCAINE) VIAL ONE (16:02)
[2018-05-16] MEDS ORDERED: LIDOCAINE PF 2% 5 ML (XYLOCAINE) VIAL ONE (16:02)
[2018-05-16] MEDS ORDERED: SULF1TAB35 PO (17:12)
[2018-05-16] MEDS ORDERED: HYDR-3812 PO (17:12)
--- NOTE | 2018-05-16 17:28 | Diagnostic Imaging Report ---
INDICATION: Table saw injury. Three views of the right hand shows appearance of amputation of the tip of the fourth digit which involves the tuft and soft tissues distal to this. No other acute bony abnormality is evident. There are degenerative changes seen of the interphalangeal joints. IMPRESSION: There appears to be injury involving the tuft of the right fourth finger. Dictated by: Dictated on workstation # [id number]
[2018-05-16 17:40] VITALS: BP 167/99
== END 2018-05-16 17:40 | disposition home or self-care (01) ==
LOC: EDUNIT# 15:08 → ER 15:10
DX: S62.634B Displaced fracture of distal phalanx of right ring finger, initial encounter for open fracture (principal); S61.314A Laceration without foreign body of right ring finger with damage to nail, initial encounter; S61.316A Laceration without foreign body of right little finger with damage to nail, initial encounter; G47.30 Sleep apnea, unspecified; I10 Essential (primary) hypertension; G25.81 Restless legs syndrome; W31.2XXA Contact with powered woodworking and forming machines, initial encounter; Y92.009 Unspecified place in unspecified non-institutional (private) residence as the place of occurrence of the external cause
CPT/HCPCS: 12032; 64450; 73130

== ENCOUNTER 2018-05-19 08:03 | Emergency (ER) | payer MEDICARE ==
[~2018-05-19] VITALS: Ht 172.7 cm; Wt 85.3 kg
[~2018-05-19 08:03] MED LIST changes: +HYDR-3812 PO; +SULF1TAB35 PO
--- NOTE | 2018-05-19 08:20 | NUR ---
FINGERS SOAKING IN A BASIN OF WARM WATER AND SURGICAL SCRUB TO HELP WITH THE REMOVAL OF THE DRESSING.
--- NOTE | 2018-05-19 08:23 | ED Suture Removal/Wound Check ---
Suture/Wound Re-check Suture Removal/Wound Recheck : Progress This 67-year-old gentleman presents to the emergency room for a wound check. He had injuries to the fourth and fifth finger on the right hand from a table saw and was treated in this ER on May 16. He presents today to have his dressings changed and his wound assessed. General Appearance: WD/WN, no apparent distress Neuro/Tendon: normal sensation, normal motor functions, normal tendon functions Skin Exam: other (Skin flap on the fourth finger is intact. There is oozing of blood on the dorsal aspect. No inflammatory changes or purulent drainage to suggest infection. Wound on the fifth finger well-healing.) Comments Dressings were stuck to the wound with dried blood. Fingers were soaked in warm water with chlorhexidine to loosen dressings. Dressings were taken down. Wound was examined and fingers were redressed with nonstick dressing and gauze. An appointment was made for follow-up wound check of Dr. Tomlinson's office. Patient was hypertensive, likely related to throbbing pain in his finger. He will continue to take pain medication to mitigate this. He is to have his blood pressure checked with Dr. Tomlinson's office on Tuesday. He denies any secondary symptoms of hypertension such as headache or vision changes. Physical Exam Vital Signs Vital Signs - First Documented 05/19/18 08:10 Temp 96.8 Pulse 89 Resp 16 B/P (MAP) 189/100 (129) Pulse Ox 97 O2 Delivery Room Air Capillary Refill : Less Than 3 Seconds General Appearance: WD/WN, no apparent distress HEENT: PERRL/EOMI, normal ENT inspection Departure Impression Primary Impression: Laceration of right little finger without foreign body Qualified Codes: S61.316D - Laceration without foreign body of right little finger with damage to nail, subsequent encounter Additional Impressions: Laceration of right ring finger with damage to nail w/o foreign body Qualified Codes: S61.314A - Laceration without foreign body of right ring finger with damage to nail, initial encounter Visit for wound check Episode of hypertension Disposition: HOME, SELF-CARE Condition: Improved Departure-Patient Inst. Decision time for Depature: 09:41 Referrals: NALLELY TOMLINSON MD (PCP/Family) Primary Care Physician Patient Instructions: Wound Care (DC) Add. Discharge Instructions: Keep the wound clean and dry. You may wash your hand if necessary by rinsing with soap and water. Blot dry. Do not submerge. You have a follow-up appointment with any at Dr. Tomlinson's office Tuesday at 11: 30 for another wound check. Call to change the appointment time if needed. Have Dr. Tomlinson's office recheck your blood pressure. Your blood pressure is likely elevated today because of pain. Continue with your blood pressure and pain medications as previously prescribed. Elevate the right hand on pillows above the level of the heart. Ice pack for 20 and intervals as needed. Change the dressing approximately daily. Return to the emergency department in 3 days for a dressing change. No use of the right 4th and 5th fingers until released. Return in the emergency department for worsened pain, fever, drainage, pain from the dressing, or any other concerns. All discharge instructions reviewed with patient and/or family. Voiced understanding. Copy Copies To 1: NALLELY TOMLINSON MD, JOSHUA T MD May 19, 2018 08:23
--- NOTE | 2018-05-19 08:30 | NUR ---
ATTEMPT TO REMOVE THE DRESSING ET IT IS STILL STUCK TO THE WOUND. FINGERS PLACED BACK INTO THE WATER.
--- NOTE | 2018-05-19 08:57 | NUR ---
DRESSINGS REMOVED. DR NOTIFIED.
--- NOTE | 2018-05-19 09:46 | NUR ---
IN TALKING TO PT ABOUT HIS BLOOD PRESSURE. BP AT THIS TIME. 184/93
[2018-05-19 10:08] VITALS: BP 176/98
== END 2018-05-19 10:08 | disposition home or self-care (01) ==
LOC: EDUNIT# 08:03 → ER 08:04
DX: S61.216D Laceration without foreign body of right little finger without damage to nail, subsequent encounter (principal); S61.214D Laceration without foreign body of right ring finger without damage to nail, subsequent encounter; I10 Essential (primary) hypertension; W31.2XXD Contact with powered woodworking and forming machines, subsequent encounter
CPT/HCPCS: 99282